=== PATIENT | female | born 1975 | race Caucasian/White ===

== ENCOUNTER → 2024-05-16 06:21 | Day surgery (SDC) | payer OTHER, SELFPAY | LOC: GI 06:21 | PROVIDERS: ATTENDING PHYSICIAN Internal Medicine Gastroenterology | DX: Z12.11 Encounter for screening for malignant neoplasm of colon (principal); K57.30 Diverticulosis of large intestine without perforation or abscess without bleeding | CPT/HCPCS: G0121 ==

== ENCOUNTER 2025-04-17 19:22 | Emergency (ER) | payer OTHER, SELFPAY ==
[2025-04-17 19:23] VITALS: BP 174/114
[2025-04-17] MEDS: ZOFRAN ODT (ORALLY DISINTEGRATING) 4 MG PO (19:34)
[2025-04-17 20:43] VITALS: BP 131/89
[2025-04-17 21:02] VITALS: BP 98/45
[2025-04-17 21:07] LABS: Hematocrit 43.3 % (37.0-47.0); Hemoglobin 14.5 g/dL (12.0-16.0); Mean Corp Hgb Conc. 33.5 g/dL (33.0-37.0); Mean Corpuscular Volume 87.5 fL (81.0-99.0); Nucleated Red Blood Cells % 0 %; Platelet Count 244 10^3/uL (130-400); Red Cell Dist. Width 13.0 % (11.5-14.5)
[2025-04-17 21:36] LABS: ALT (SGPT) 27 U/L (0-35); AST (SGOT) 26 U/L (14-36); Albumin 4.8 g/dl (3.5-5.0); Alkaline Phosphatase 61 U/L (38-126); Blood Urea Nitrogen 13 mg/dl (7-17); Calcium 10.6 mg/dl (8.4-10.2); Carbon Dioxide 27 mmol/L (22-30); Chloride 103 mmol/L (98-107); Glucose 90 mg/dl (70-99); Potassium 3.9 mmol/L (3.5-5.1); Sodium 138 mmol/L (135-145); Total Protein 7.7 g/dl (6.3-8.2); eGFR > 60.00
[2025-04-17 22:00] VITALS: BP 111/34
[2025-04-17] MEDS: REGLAN 10 MG IV (22:10)
[2025-04-17] MEDS: BENADRYL 25 MG IV (22:10)
[2025-04-17] MEDS: NSS 1000 IV (22:11)
--- NOTE | 2025-04-17 23:15 | ED.GENMED ---
History of Present Illness
General
Chief Complaint: Abdominal Symptoms
Source: patient
Exam Limitations: none
Time Seen by Provider: 04/17/25 21:01
Nursing documentation reviewed up to this point in time: agreed with
History of Present Illness
History of Present Illness:
Note:
CHIEF COMPLAINT(S)
Nausea, vomiting, dizziness, and severe headache after restarting medication.
HISTORY OF PRESENT ILLNESS
The patient is a 49-year-old male with a history of migraines and bipolar II disorder presenting with nausea, vomiting, dizziness, severe headache, and inability to tolerate oral intake. Symptoms began after the patient restarted a medication at a
1.4 dose at approximately 4 PM the previous day. The patient reported nausea and vomiting shortly after administering the medication, noting an inability to keep down water or food, including a sandwich consumed earlier in the day. Despite attempts
to stay hydrated, symptoms worsened over the course of the day. The patient described the headache as severe and debilitating, to the point where he cannot support his own weight. Additionally, he reported feeling shaky and experiencing motion
sickness. The patient had discontinued the medication six weeks prior and resumed it after experiencing weight gain. There is no history of hematemesis or blood in the vomitus. The patient denies significant alcohol consumption recently but noted
using a small amount of marijuana within the last two days.
PAST MEDICAL AND SURIGICAL HISTORY
Migraines and bipolar II disorder.
CHRONIC MEDICAL CONDITIONS SIGNIFICANTLY AFFECTING CARE
Bipolar II disorder and migraines.
MEDICATIONS
The patient takes lurasidone (presumably for bipolar II disorder), diphenhydramine for sleep, lamotrigine, and lorazepam for anxiety.
PHYSICAL EXAM
General: Alert, no acute distress.
Skin: Warm, dry. Multiple tattoos
Head: Normocephalic, atraumatic.
Neck: Supple, trachea midline.
Eye Ears, Nose, Mouth, and Throat: Oral mucosa moist.
Cardiovascular: Normal peripheral perfusion, No edema.
Respiratory: Respirations are non-labored.
Gastrointestinal: Abdomen nondistended. Good bowel sounds x 4 quadrants. No tenderness to palpation.
Back: Normal range of motion, Normal alignment.
Musculoskeletal: Normal range of motion, normal strength.
Neurological: Alert and oriented to person, place, time, and situation, No focal neurological deficit observed.
Psychiatric: Cooperative, appropriate mood & affect.
PLAN
The plan is to administer different antiemetic medications, possibly in combination with diphenhydramine to address the jitteriness. Monitor labs and support hydration to manage dehydration due to ongoing vomiting.
DIFFERENTIAL DIAGNOSIS
The Differential Diagnosis includes, in no particular order and is not limited to:
1. Medication side effects
2. Migraine exacerbation
3. Viral gastroenteritis
4. Anxiety-related nausea
5. Vestibular disorder
6. Metabolic imbalance
7. Substance-induced nausea
8. Gastritis
9. Food poisoning
10. Gastroesophageal reflux disease (GERD)
Disposition:
SUMMARY OF ENCOUNTER
A 49-year-old female presented with nausea and vomiting after taking Wegovy (semaglutide) following a six-week break. She also experienced headaches and reported having had fever and chills previously. In the emergency department, she received
fluids and antiemetic medication, leading to marked improvement in her condition.
DISPOSITION
Discharge
EMERGENCY TREATMENTS ADMINISTERED
Intravenous fluids and antiemetic medication.
PATIENT EDUCATION AND COUNSELING
The patient was educated on the importance of gradually reintroducing Wegovy and monitoring for potential side effects. Instructions were provided on managing nausea and when to seek further medical attention.
FOLLOW-UP INSTRUCTIONS
The patient was advised to schedule a follow-up visit with her primary care provider to reassess and manage her medication regimen.
MEDICAL DECISION MAKING
-Chronic conditions affecting care: Consideration was made regarding the side effects of Wegovy in conjunction with the patients recent break from the medication.
Data:
Category 1
Labs were reviewed and noted to be unremarkable.
-Risk:
Consideration of Admission/Observation: Escalation of care including admission/observation was considered given the complexity and risk of the patients presenting complaint. However, ultimately the patient was considered safe for outpatient
management with close follow-up. Reasoning: Work-up revealed no acute life/organ-threatening processes, with symptoms well controlled upon reevaluation, reexamination reassuring, stable vitals, patients agreement with discharge, and reliability for
follow-up.
DIAGNOSIS
R11.2 - Nausea and vomiting
G44.1 - Vascular headache, not elsewhere classified
Phy Exam
Physical Exam
Physical Exam:
.
Course
Orders/Labs/Results
Orders:
Orders
04/17/25 19:28
Ondansetron Orally Disint [Zofran Odt (Orally Disintegrating)] 4 mg .ROUTE .STK-MED ONE
04/17/25 19:29
Ondansetron Orally Disint [Zofran Odt (Orally Disintegrating)] 4 mg PO NOW STA
04/17/25 20:57
CBC/With Diff [Complete Blood Count/With Diff] Urgent
Comprehensive Metabolic Panel Urgent
04/17/25 21:43
Diphenhydramine [Benadryl] 25 mg IV NOW STA
Metoclopramide [Reglan] 10 mg IV NOW STA
04/17/25 21:59
0.9% Sodium Chloride 1000 ml [Nss] 1,000 ml IV BOLUS
04/18/25 00:52
Acetaminophen [Tylenol] 1,000 mg PO NOW STA
Abnormal Lab Results
04/17/25
20:57
WBC 11.6 H 10^3/uL
(4.8-10.8)
Abs Immat Gran (auto) 0.1 H 10^3/uL
(0-0.05)
Absolute Neuts (auto) 9.7 H 10^3/uL
(1.4-6.5)
Neutrophils % 84.1 H %
(42.2-75.2)
Lymphocytes % 9.9 L %
(20.5-51.1)
Calcium 10.6 H mg/dl
(8.4-10.2)
04/17/25 20:57
04/17/25 20:57
Vital Signs
Initial and Last Documented VS:
Initial Vital Signs
Temp Pulse Resp BP Pulse Ox
98.2 F 109 16 174/114 98
04/17/25 19:23 04/17/25 19:23 04/17/25 19:23 04/17/25 19:23 04/17/25 19:23
Last Documented Vital Signs
Temp Pulse Resp BP Pulse Ox
98.2 F 118 18 132/84 100
04/17/25 19:23 04/18/25 01:03 04/18/25 01:03 04/18/25 01:03 04/18/25 01:03
*Pulse Oximetry
SaO2: 98
Oxygen Mode of Delivery: Room air
Patient hypoxic: no
*Critical Care Note
Total Time (30-74mins, 75-104mins- exclusive of procedures): Not Applicable
Update Note
Update Note:
10:55 PM: Patient sleeping and resting comfortably.
ED Attending Note
-
Portions of this chart may have been created with voice recognition software.� Occasional wrong word or��sound alike� substitutions may have occurred due to the inherent limitations of voice recognition software.
Discharge Plan
Departure
Patient Disposition: Home (Routine Discharge)
Date of Disposition: 04/18/25
Time of Disposition: 01:33
Patient with high blood pressure during this ER visit?: Yes
Discharge Problem:
Medication side effect, Nausea & vomiting
Instructions: Nausea and Vomiting, Adult (DC), BLOOD PRESSURE
Prescriptions:
New
metoclopramide HCl [Reglan] 10 mg tablet
10 mg PO Q8HPRN PRN (Reason: nausea and vomiting) Qty: 9 0RF
No Action
prenat.vits,woo,cpu-odlv-yvzmm [ Vitamin] 1 TAB tablet
1 tab PO DAILY
Benadryl
50 mg PO HS
Referrals:
Concepcion Vargas PA-C [Family Provider, Internal Medicine]
Activity Restrictions/Additional Instructions:
Your prescriptions were sent electronically to the pharmacy that you specified.
Thank You for choosing [facility].
It was a pleasure meeting you and taking part in your care. We hope for your continued healing and wellness.
Please read discharge instructions in their entirety. However, they are for general education and may not describe your exact diagnosis at discharge. Information on your ER visit and medical conditions were discussed with you along with appropriate
follow up information...
If indicated, please take your medications as instructed and indicated on discharge paperwork.
Please schedule a follow up appointment as directed. Call to schedule an appointment
Please return to the emergency department with ANY change in, persisting, or worsening of symptoms. If any of your symptoms do not improve, or persist, or become more severe within 6-12 hours, please return to the emergency department for further
care.
Please return to the emergency department if you develop a headache, neck pain/stiffness, fever greater than 100.4F, chest pain, shortness of breath, persistent nausea, vomiting, slurred speech, difficulty walking, numbness/tingling, weakness, signs
of infection or any other symptoms that are worrisome to you.
If you have any questions or concerns please do not hesitate to call the Hospital at or E-mail me directly at [email or web address]
Interventions
Interventions:
*Risk Screen - Suicide Last Done: 04/17/25 19:23
*General Assessment Last Done: 04/18/25 02:27
*Neglect/Abuse Screening Last Done: 04/18/25 02:27
*ED- Fall Risk Assessment Last Done: 04/18/25 02:27
*ED COVID-19 Vaccine History Last Done: 04/18/25 02:27
*Nursing Disposition Last Done: 04/18/25 02:27
FR-Yxbavd-Bufdsvhmgd Assessment Last Done: 04/17/25 20:48
Discharge Date and Time
Discharge Date/Time: 04/18/25 02:29
Print Language: LAO
[2025-04-18 00:56] VITALS: BP 207/98
[2025-04-18] MEDS: TYLENOL 1000 MG PO (01:01)
[2025-04-18 01:03] VITALS: BP 132/84
== END 2025-04-18 02:29 | disposition home or self-care (01) ==
LOC: EMR 19:22
PROVIDERS: Emergency Medicine; EMERGENCY PHYSICIAN Student in an Organized Health Care Education/Training Program; FAMILY PHYSICIAN Physician Assistant Medical
DX: R11.2 Nausea with vomiting, unspecified (principal); T50.5X5A Adverse effect of appetite depressants, initial encounter; E86.0 Dehydration; G43.909 Migraine, unspecified, not intractable, without status migrainosus; F31.81 Bipolar II disorder; F12.90 Cannabis use, unspecified, uncomplicated
CPT/HCPCS: 99284; 96374; 96375; 96361; 80053; 85025